=== PATIENT | male | born 1935 | race Caucasian/White ===

== ENCOUNTER 2016-04-17 09:43 | Emergency (ER) | payer MEDICARE, OTHER ==
--- NOTE | 2016-04-18 17:36 | ER ---
ADMIT: 04/17/2016 RM/LOC: ER [facility] MR#: [id number] [address] [address] ELBERTNAMAN ZURITA [address] [place] [address] Emergency Room Report SEX: M AGE: 80 : 1935 DATE: 04/17/2016 For chief complaint, history of present illness, past medical history, medications, allergies, review of systems, including physical exam, please see my T-sheet. INTERIM HISTORY: The patient is an 80-year-old, white male, who presents to the emergency room with an avulsion on the bottom of his foot. He has had some tape on holding a Band-Aid on corn. When the tape came off, it pulled the skin off. He was not able to control the bleeding, went in to the clinic and they sent him over here. The patient is currently on Pradaxa for atrial fibrillation. Denies any complaints. PHYSICAL EXAMINATION: VITAL SIGNS: Stable. Examination of bottom of the foot, he has an approximately 1 cm in diameter avulsed area on the lateral aspect of the right foot. There is no laceration to repair. Nursing staff had cleaned it, put a Surgicel strips on with some Coban. The bleeding had slowed, however, upon removing of the dressing, bleeding was rather profuse. I used 3 silver nitrate sticks to apply a chemical cauterization to the avulsed area. The patient tolerated it well. Bleeding was controlled. It was dressed with Surgicel, a nonadherent and Coban tape. IMPRESSION: Avulsion to the plantar aspect of the right foot with bleeding controlled. Home, rest, activity as tolerated, Leave the dressing on for 24 hours and follow up as needed. The patient is in stable condition at discharge. CARI Charles / Ken Bonilla MD / audie JOB #: [id number] CC: Ken Bonilla MD, Attending Physician
[2016-04-21] MEDS ORDERED: ASA CHILDREN'S81 MG PO (17:14)
[2016-04-21] MEDS ORDERED: CARTIA XT180 MG PO (17:14)
[2016-04-21] MEDS ORDERED: ZESTRIL DPS5 MG PO (17:15)
[2016-04-21] MEDS ORDERED: LOPRESSOR DPS50 MG PO (17:15)
[2016-04-21] MEDS ORDERED: THERAPEUTIC MUL1 TAB PO (17:15)
[2016-04-21] MEDS ORDERED: POTASSIUM CHLO10 MEQ PO (17:16)
[2016-04-21] MEDS ORDERED: ALDACTONE DPS25 MG PO (17:16)
[2016-04-21] MEDS ORDERED: PRADAXA150 MG PO (17:16)
[2016-04-21] MEDS ORDERED: KEFLEX-DPS500 MG PO (17:17)
[2016-04-21] MEDS ORDERED: LASIX DPS80 MG PO (17:17)
[2016-04-21] MEDS ORDERED: KENALOG 0.1% D454 GM TP (17:17)
[2016-07-21] MEDS ORDERED: VIBRAMYCIN-DPS100 M2 PO (14:07)
[2016-09-29] MEDS ORDERED: LASIX DPS80 MG PO (08:13)
[2016-09-29] MEDS ORDERED: KLOR-CON M2020 ME1 PO (08:14)
[2016-09-29] MEDS ORDERED: XANAX DPS0.5 MG PO (08:15)
== END 2016-04-17 11:00 | disposition home or self-care (01) ==
LOC: ER 09:43
DX: S91.301A Unspecified open wound, right foot, initial encounter (principal); X58.XXXA Exposure to other specified factors, initial encounter; Y92.009 Unspecified place in unspecified non-institutional (private) residence as the place of occurrence of the external cause

== ENCOUNTER → 2016-06-15 | Outpatient (CLI) | payer MEDICARE, OTHER ==
[~2016-06-15] MED LIST: ALDACTONE DPS25 MG PO; ASA CHILDREN'S81 MG PO; CARTIA XT180 MG PO; KEFLEX-DPS500 MG PO; KENALOG 0.1% D454 GM TP; KLOR-CON M2020 ME1 PO; LASIX DPS80 MG PO; LOPRESSOR DPS50 MG PO; POTASSIUM CHLO10 MEQ PO; PRADAXA150 MG PO; THERAPEUTIC MUL1 TAB PO; VIBRAMYCIN-DPS100 M2 PO; XANAX DPS0.5 MG PO; ZESTRIL DPS5 MG PO
== END | disposition home or self-care (01) ==
LOC: RAD.S 06-13 11:59
DX: M79.671 Pain in right foot (principal); M86.271 Subacute osteomyelitis, right ankle and foot; L97.514 Non-pressure chronic ulcer of other part of right foot with necrosis of bone; I73.9 Peripheral vascular disease, unspecified; I70.209 Unspecified atherosclerosis of native arteries of extremities, unspecified extremity

== ENCOUNTER 2016-07-19 21:06 | Inpatient (IN) | payer MEDICARE, OTHER ==
[~2016-07-19] VITALS: Ht 185.4 cm; Wt 86.0 kg
[~2016-07-19 21:06] MED LIST changes: -KLOR-CON M2020 ME1 PO; -VIBRAMYCIN-DPS100 M2 PO; -XANAX DPS0.5 MG PO
--- NOTE | 2016-07-20 12:05 | HP ---
ADMIT: 07/19/2016 RM/LOC: 401 [facility] MR#: [id number] [address] [address] NAMAN THOMAS [address] [place] [address] History and Physical SEX: M AGE: 81 : 1935 DATE OF SERVICE: CHIEF COMPLAINT: Fall. HISTORY OF PRESENT ILLNESS: The patient is a very pleasant 81-year-old gentleman, who last night sustained a fall at home after he had just gotten up and stood up. He had been on his usual diuretics. Had much less swelling in his legs recently. He has recently been struggling with some right lower extremity osteomyelitis finishing a month long of doxycycline. He really does not want to pursue any vascular procedure or a surgical procedure he states. He has been seeing Infectious Disease, Vascular Surgery, and Podiatry. He is a little bit confused regarding the course of this. Either way, he states he stood up today, had a fall. Denies any injury from this, a little bit of pain in his left shoulder, but has full range of motion. No chest pain. No palpitations. No recent fevers, chills, nausea, or vomiting. Been eating and drinking well lately. No headaches now. PAST MEDICAL HISTORY: 1. History of depression. 2. 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 3. Hypertension. 4. History of paroxysmal AFib, on chronic anticoagulation. 5. Right lower extremity osteomyelitis in spring. FAMILY HISTORY: Reviewed and noncontributory. SOCIAL HISTORY: He is a former smoker. Lives at home. Daughter is very involved in his care. Gets out socially at least a couple times a week with friends. REVIEW OF SYSTEMS: As per HPI. Otherwise, completely reviewed and negative. PHYSICAL EXAMINATION: VITAL SIGNS: Temperature 96.7, pulse 62, respiratory rate 18, blood pressure 113/64, O2 saturation 100% on room air. GENERAL: He is alert, oriented x3, in no acute distress, pleasant as always. HEENT: Normocephalic, atraumatic. Pupils equal, round, and reactive to light and accommodation. Extraocular muscles intact. Dry mucous membranes. LUNGS: Clear to auscultation bilaterally. No wheezes, rales, or rhonchi. HEART: Regular rate and rhythm. No murmurs, rubs, or gallops. ABDOMEN: Soft, nontender, nondistended. Bowel sounds present. EXTREMITIES: No cyanosis, clubbing, or edema. Much improved from baseline. MUSCULOSKELETAL: 5/5 strength in all 4 extremities. NEUROLOGICAL: No focal deficits noted. Cranial nerves II through XII grossly intact. SKIN: No rashes. Diffuse ecchymoses throughout, chronic. LABORATORY AND X-RAY DATA: His initial creatinine was 3.6 when he came in, repeat 3.3. BUN is 98, INR is 1.4, hemoglobin 12.1, AST and ALT within normal ADMIT: 07/19/2016 RM/LOC: 401 [facility] MR#: [id number] [address] [address] NAMAN THOMAS [address] [place] [address] History and Physical SEX: M AGE: 81 : [address] of his head was done and reportedly negative. ASSESSMENT: 1. Dehydration. 2. Acute kidney injury. 3. Fall. 4. Osteomyelitis of right lower extremity. 5. History of chronic diastolic heart failure without exacerbation. PLAN: At this point in time, we will give him some fluid. He is very anxious to return home. I think this can be done, we will hold off on his spironolactone, lisinopril, Lasix until we see him next week with repeat labs at that point in time. I will extend his doxycycline for another 14 days for total of 6 weeks. Overall, his right foot looks much improved. We will repeat his sedimentation rate in the office, and I will consider repeating MRI here in the future to see where the status of his osteomyelitis is although he is extremely reluctant for any surgical intervention. The patient is agreeable to plan. Girish Izquierdo MD/ audie JOB #: [id number] CC: Girish Izquierdo MD, Attending Physician Girish Izquierdo MD, Family Physician
--- NOTE | 2016-07-20 19:12 | ER ---
ADMIT: 07/19/2016 RM/LOC: 401 [facility] MR#: [id number] [address] [address] NAMAN THOMAS [address] [place] [address] Emergency Room Report SEX: M AGE: 81 : 1935 DATE: 07/19/2016 HISTORY OF PRESENT ILLNESS: The patient is an 81-year-old male with past medical history of AFib, on Pradaxa; CHF; hypertension; and peripheral vascular disease. The patient allegedly wanted to go to the bathroom and on the way felt very tired and fell. The patient denies any loss of consciousness or head trauma. The patient says after that he was not able to stand up because of generalized weakness and he crawled to the bed and called the daughter, which she also called the ambulance. There is no more history about the patient other than the blood sugar was normal. PHYSICAL EXAMINATION: VITAL SIGNS: In the ER, the vital signs are stable, blood pressure is 105/75, pulse is in the mid 50s, and the patient is afebrile with normal respiratory rate, O2 saturation is 100% on room air. GENERAL: The patient is alert and oriented to person, place, and time, answered the question, but eliciting the answers sometimes difficult because the patient did not bring his hearing aid. The patient moves all the extremities without any difficulty and denies any pain. HEENT: There are no obvious signs of recent trauma in the head and neck or the body. The patient has some discoloration of the skin, possible chronic ecchymosis especially on the dorsum of the hands and forearms. The patient has no midline tenderness or step-offs on the spine. The patient has no raccoon eyes, no hemotympanum, and no Becerra sign. Pupils are 3 mm, reactive to light bilaterally with normal extraocular movement and no signs of trauma in the mouth. CHEST: Lungs are clear bilaterally. HEART: Normal S1, S2, without any murmurs. ABDOMEN: Soft without any tenderness or rebound or guarding. EXTREMITIES: I did not see any signs of trauma, have normal range of motion and motor and sensory is grossly normal. The rest of the physical exam is grossly normal. NIH score was 0. Considering the patient is on Pradaxa and the fall, CT of the head was done, which did not show any acute changes. EKG showed atrial fibrillation with a heart rate of mid 50s. Cardiac enzymes are negative. ADMIT: 07/19/2016 RM/LOC: 401 [facility] MR#: [id number] [address] [place] [id number] NAMAN THOMAS [address] [place] [address] Emergency Room Report SEX: M AGE: 81 : 1935 Chest x-ray showed cardiomegaly without any acute new changes. The patient had WBC of 5.5, with hemoglobin of 12.1, and platelet of 182,000. Urinalysis was negative. The patient had INR of 1.42 and PTT of 51. The patient had sodium of 131 with potassium of 5.4 and chloride of 98 and bicarb of 20. BUN was 102 with creatinine of 3.6, the previous creatinine from 2017 was 1.1. Glucose was 107. Ethanol level, blood alcohol level was also 33. CK was 45. Considering elevated BUN and also creatinine and also BUN creatinine ratio, acute kidney injury, prerenal azotemia possibly due to the usage of the spironolactone, Lasix, and possibly decreased intake of the fluid could be the cause of the generalized weakness. Internal Medicine was consulted and the patient was admitted for further followups and treatments for acute kidney injury, generalized weakness. Tho Hearn MD/ modl JOB #: [id number] CC: Girish Izquierdo MD, Attending Physician Girish Izquierdo MD, Family Physician
[2016-07-21] MEDS ORDERED: VIBRAMYCIN-DPS100 M2 PO (14:07)
--- NOTE | 2016-07-28 15:48 | DS ---
ADMIT: 07/19/2016 RM/LOC: 401 [facility] MR#: [id number] [address] [address] NAMAN THOMAS [address] [place] [address] Discharge Summary SEX: M AGE: 81 : 1935 ADMISSION DATE: 07/19/2016 DISCHARGE DATE: 07/20/2016 FINAL DIAGNOSES: 1. Fall. 2. Acute kidney injury. 3. Dehydration. 4. Osteomyelitis of right lower extremity. 5. Chronic diastolic heart failure without acute exacerbation. REASON FOR ADMISSION: The patient is a very pleasant gentleman who had a fall at home. He had been taking his diuretics as instructed lately. Looks like he got a little dry. Admitted for further stabilization. Admitted and hydrated. Renal function improving. He is very adamant he wanted to leave the hospital and this seemed safe enough. Let him go home with close followup as an outpatient with repeat labs in clinic within the week as well as holding appropriate medications. DISCHARGE MEDICATION: For discharge medications, please see discharge MAR which I reviewed. Girish Izquierdo MD/ radhag JOB #: [id number] CC: Girish Izquierdo MD, Attending Physician Girish Izquierdo MD, Family Physician
[2016-09-29] MEDS ORDERED: LASIX DPS80 MG PO (08:13)
[2016-09-29] MEDS ORDERED: KLOR-CON M2020 ME1 PO (08:14)
[2016-09-29] MEDS ORDERED: XANAX DPS0.5 MG PO (08:15)
== END 2016-07-20 13:15 | disposition home or self-care (01) | DRG 683 ==
LOC: ER 21:06 → 4PCU 23:35
PROVIDERS: ADMIT Internal Medicine
DX: N17.9 Acute kidney failure, unspecified (principal); I50.32 Chronic diastolic (congestive) heart failure; E86.0 Dehydration; I48.0 Paroxysmal atrial fibrillation; M86.8X7 Other osteomyelitis, ankle and foot; I11.0 Hypertensive heart disease with heart failure; I73.9 Peripheral vascular disease, unspecified; F32.9 Major depressive disorder, single episode, unspecified; Z87.891 Personal history of nicotine dependence; Z79.01 Long term (current) use of anticoagulants